=== PATIENT | female | born 1955 | race Asian ===

== ENCOUNTER 2018-12-07 18:53 | Inpatient (IN) | payer BC ==
[~2018-12-07] VITALS: Ht 165.1 cm; Wt 90.0 kg
[2018-12-08] VITALS: BP 130/85; PULSE 59; RESP 17; Ht 165.1 cm; Wt 90.0 kg
[2018-12-08] MEDS ORDERED: ACETAMINOPHEN 325 MG TAB PO PRN (01:30)
[2018-12-08] MEDS: SOD CHLORIDE 0.9% 1,000 ML IV SCH ×2 (01:30→15:22)
[2018-12-08] MEDS ORDERED: morphine 2 MG INJ IV PRN (01:30)
[2018-12-08] MEDS: PANTOPRAZOLE 40 MG INJ IV SCH (06:00)
[2018-12-08 07:49] VITALS: BP 128/73; PULSE 70; RESP 18
--- NOTE | 2018-12-08 12:36 | QN ---
Documentation Comment seen and examined LYN STEWART MD Dec 08, 2018 12:36
[2018-12-08] MEDS: ONDANSETRON 4 MG INJ IV PRN (15:27)
[2018-12-08 15:32] VITALS: BP 137/79; PULSE 59; RESP 18
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
[2018-12-08] MEDS: INDOMETHACIN 50 MG SUPP PR ONE ×2 (19:00→22:00)
[2018-12-08 20:04] VITALS: BP 128/72; PULSE 63; RESP 20
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
[2018-12-09] VITALS (17 sets, daily range): BP systolic 130–168; BP diastolic 68–101; PULSE 54–82; RESP 16–21
[2018-12-09] MEDS: SOD CHLORIDE 0.9% 1,000 ML IV SCH ×3 (01:50→15:24)
[2018-12-09] MEDS: PANTOPRAZOLE 40 MG INJ IV SCH (05:55)
[2018-12-09] MEDS ORDERED: SEVOFLURANE 15 MIN ONE (07:00)
[2018-12-09] MEDS: ONDANSETRON 4 MG INJ IV PRN (11:41)
[2018-12-09] MEDS ORDERED: INDOMETHACIN 50 MG SUPP PR ONE (12:00)
[2018-12-09] MEDS ORDERED: IOHEXOL 300MG/ML 30 ML BTL ONE (12:05)
--- NOTE | 2018-12-09 12:43 | HPN ---
Date/Time of Note Date/Time of Note DATE: 12/09/18 TIME: 12:42 Interval H&P Admission Note Pt. seen H&P reviewed: No system changes ALINA MONTGOMERY MD Dec 09, 2018 12:43
--- NOTE | 2018-12-09 12:50 | PREAC ---
Date/Time of Note Date/Time of Note DATE: 12/09/18 TIME: 12:48 Anesthesia Eval and Record Evaluation Time Pre-Procedure Interview DATE: 12/09/18 TIME: 12:48 Age 63 Sex female NPO: 8 hrs Preoperative diagnosis Biliary Stenosis Planned procedure ERCP Past Medical History Past Medical History: None Heme: Anemia Surgery & Anesthesia Issues No known issue Meds Anticoagulation: No Beta Saad within 24 hr: No Reason Beta Saad not given: Pt. not on B-Saad Current Medications Sodium Chloride 1,000 ml @ 100 mls/hr Q10H IV Last administered on 12/09/18at 11:41; Admin Dose 100 MLS/HR; Start 12/08/18 at 01:30 Morphine Sulfate (morphine) 2 mg Q4H PRN IV SEVERE PAIN LEVEL 7-10; Start 12/08/18 at 01:30 Acetaminophen (Tylenol Tab) 650 mg Q6H PRN PO MILD PAIN(1-3)OR ELEVATED TEMP; Start 12/08/18 at 01:30 Ondansetron HCl (Zofran Inj) 4 mg Q6H PRN IV NAUSEA AND/OR VOMITING Last administered on 12/09/18at 11:41; Admin Dose 4 MG; Start 12/08/18 at 01:30 Pantoprazole (Protonix Iv) 40 mg DAILY@06 IV Last administered on 12/09/18at 05:55; Admin Dose 40 MG; Start 12/08/18 at 06:00 Meds reviewed: Yes Allergies Coded Allergies: No Known Allergy (Unverified , 12/08/18) Allergies Reviewed: Yes Labs/Studies Labs Reviewed: Reviewed by anesthesiologist Result Diagram: 12/08/18 0447 12/09/187 Laboratory Tests 12/09/18 04:47 test: N/A Studies: ECG (n/a), CXR (n/a) Pre-procedure Exam Last vitals Vital Signs Date Temp Pulse Resp B/P (MAP) Pulse Ox O2 O2 Flow FiO2 Time Delivery Rate 12/09/18 97.6 54 20 136/76 97 Room Air 08:25 (96) Airway: Adequate mouth opening, Adequate thyromental dist Mallampati: Mallampati II Teeth: Normal Lung: Normal Heart: Normal ASA Physical Status ASA physical status: 2 Emergency: None Planned Anesthetic General/MAC: ETT Planned Pain Management Parenteral pain med Pre-operative Attestations Prior to commencing anesthesia and surgery, the patient was re-evaluated, there was verification of: *The patient's identity *The results of appropriate recent lab work and preoperative vital signs *The above evaluation not changing prior to induction *Anesthetic plan, risk benefits, alternative and complications discussed with patient/family; questions answered; patient/family understands, accepts and wishes to proceed. ALVARO HSIEH MD Dec 09, 2018 12:50
[2018-12-09] MEDS ORDERED: PROPOFOL 20 ML ONE (12:51)
[2018-12-09] MEDS ORDERED: MIDAZOLAM 1 MG/ML 2 ML INJ ONE (12:51)
[2018-12-09] MEDS ORDERED: CEFAZOLIN 1 GM INJ ONE (12:51)
[2018-12-09] MEDS ORDERED: ROCURONIUM 50 MG INJ ONE (12:51)
[2018-12-09] MEDS ORDERED: FENTAnyl 50 MCG/ML VIAL ONE (12:52)
[2018-12-09] MEDS ORDERED: DIPHENHYDRAMINE 50 MG INJ IV PRN (13:00)
[2018-12-09] MEDS ORDERED: FENTAnyl 50 MCG/ML VIAL IV PRN ×6 (13:00→13:30)
[2018-12-09] MEDS ORDERED: LABETALOL HCL 20MG INJ IV PRN ×2 (13:00→13:30)
[2018-12-09] MEDS ORDERED: hydrALAzine 20 MG INJ IV PRN ×2 (13:00→13:30)
[2018-12-09] MEDS ORDERED: HYDROmorphONE 1 MG/5 ML IV SYRINGE IV PRN ×6 (13:00→13:30)
[2018-12-09] MEDS ORDERED: ONDANSETRON 4 MG INJ IV PRN ×2 (13:00→13:30)
[2018-12-09] MEDS ORDERED: EPHEDrine SULFATE 50 MG/5 ML SYG IV PRN ×2 (13:00→13:30)
[2018-12-09] MEDS ORDERED: MEPERIDINE 25 MG INJ IV PRN (13:00)
[2018-12-09] MEDS ORDERED: METOCLOPRAMIDE 10 MG INJ IV PRN ×2 (13:00→13:30)
[2018-12-09] MEDS ORDERED: ONDANSETRON 4 MG INJ ONE (13:25)
[2018-12-09] MEDS ORDERED: GLYCOPYRROLATE 0.4 MG INJ ONE (13:25)
[2018-12-09] MEDS ORDERED: METOCLOPRAMIDE 10 MG INJ ONE (13:25)
[2018-12-09] MEDS ORDERED: KETOROLAC 30 MG INJ ONE (13:25)
[2018-12-09] MEDS ORDERED: DEXAMETHASONE 4 MG/ML 5 ML INJ ONE (13:25)
[2018-12-09] MEDS ORDERED: NEOSTIGMINE 3 MG/3 ML SYRINGE ONE (13:25)
--- NOTE | 2018-12-09 13:44 | PAC ---
Date/Time of Note Date/Time of Note DATE: 12/09/18 TIME: 13:44 Post-Anesthesia Notes Post-Anesthesia Note Last documented vital signs Vital Signs Date Temp Pulse Resp B/P (MAP) Pulse Ox O2 O2 Flow FiO2 Time Delivery Rate 12/09/18 98.4 54 20 136/76 97 Room Air 13:45 (96) Activity: WNL Respiratory function: WNL Cardiovascular function: WNL Mental status: Baseline Pain reasonably controlled: Yes Hydration appropriate: Yes Nausea/Vomiting absent: Yes ALVARO HSIEH MD Dec 09, 2018 13:44
--- NOTE | 2018-12-09 13:49 | PN ---
Date/Time of Note Date/Time of Note DATE: 12/09/18 TIME: 13:47 Assessment/Plan VTE Prophylaxis Risk score (from Ns)>0 risk: 3 SCD applied (from Ns): Yes Pharmacological prophylaxis: NA/contraindicated Pharm contraindication: low risk/ambulating Lines/Catheters IV Catheter Type (from Rust): Peripheral IV Urinary Cath still in place: No Assessment/Plan Hospital Course 63-year-old female who presented with: 1. Recurrent episodes of pancreatitis. The patient is status post cholecystectomy in 1994. CT of the abdomen and pelvis showed mild intrahepatic biliary dilatation in the posterior right hepatic lobe, could be benign biliary stricture. MRCP findings noted 2. Pancytopenia. 3. Abnormal LFTs secondary to #1. 4. History of cholecystectomy. 5. History of hysterectomy. PLAN -ERCP today -Lipase trending down -Repeat labs tomorrow -GI recs -Pain control/ZOFRAN/Reglan/PPI Result Diagram: 12/08/1844612/09/18446 Results 24hrs Laboratory Tests Test 12/09/18 04:47 Prothrombin Time 12.8 Prothrombin Time Ratio 1.0 INR International Normalized Ratio 0.95 Sodium Level 140 Potassium Level 4.3 Chloride Level 106 Carbon Dioxide Level 24 Anion Gap 10 Blood Urea Nitrogen 10 Creatinine 0.65 Est Glomerular Filtrat Rate mL/min > 60 Glucose Level 103 Calcium Level 8.9 Magnesium Level 2.0 Total Bilirubin 0.7 Direct Bilirubin 0.00 Indirect Bilirubin 0.7 Aspartate Amino Transf (AST/SGOT) 287 H Alanine Aminotransferase (ALT/SGPT) 277 H Alkaline Phosphatase 182 H Total Protein 7.0 Albumin 3.5 Globulin 3.50 H Albumin/Globulin Ratio 1.00 Lipase 1470 H CA 19-9 Antigen < 1.4 Subjective 24 Hr Interval Summary Free Text/Dictation Pain is improved today MRCP noted Exam/Review of Systems Exam Vitals Vital Signs Date Temp Pulse Resp B/P (MAP) Pulse Ox O2 O2 Flow FiO2 Time Delivery Rate 12/09/18 97.6 54 20 136/76 97 Room Air 08:25 (96) Intake and Output 12/08/18 12/08/18 12/09/18 1515:00 23:00 07:00 IntakeIntake Total 560 ml 395 ml 1100 ml BalanceBalance 560 ml 395 ml 1100 ml Exam GENERAL: The patient is awake, alert, oriented, does not appear to be in any acute distress. HEENT: Pupils are equal, round, reactive to light. No scleral icterus. LUNGS: Clear to auscultation bilaterally. HEART: Regular rate, rhythm. ABDOMEN: Soft, some tenderness present in the epigastric region. Positive bowel sounds. Multiple surgical scars. EXTREMITIES: No clubbing, cyanosis or edema. The patient has a surgical scar on the left foot. Results Results 24hrs Laboratory Tests Test 12/09/18 04:47 Prothrombin Time 12.8 Prothrombin Time Ratio 1.0 INR International Normalized Ratio 0.95 Sodium Level 140 Potassium Level 4.3 Chloride Level 106 Carbon Dioxide Level 24 Anion Gap 10 Blood Urea Nitrogen 10 Creatinine 0.65 Est Glomerular Filtrat Rate mL/min > 60 Glucose Level 103 Calcium Level 8.9 Magnesium Level 2.0 Total Bilirubin 0.7 Direct Bilirubin 0.00 Indirect Bilirubin 0.7 Aspartate Amino Transf (AST/SGOT) 287 H Alanine Aminotransferase (ALT/SGPT) 277 H Alkaline Phosphatase 182 H Total Protein 7.0 Albumin 3.5 Globulin 3.50 H Albumin/Globulin Ratio 1.00 Lipase 1470 H CA 19-9 Antigen < 1.4 Medications Medication Current Medications Sodium Chloride 1,000 ml @ 100 mls/hr Q10H IV Last administered on 12/09/18at 11:41; Admin Dose 100 MLS/HR; Start 12/08/18 at 01:30 Morphine Sulfate (morphine) 2 mg Q4H PRN IV SEVERE PAIN LEVEL 7-10; Start 12/08/18 at 01:30 Acetaminophen (Tylenol Tab) 650 mg Q6H PRN PO MILD PAIN(1-3)OR ELEVATED TEMP; Start 12/08/18 at 01:30 Ondansetron HCl (Zofran Inj) 4 mg Q6H PRN IV NAUSEA AND/OR VOMITING Last administered on 12/09/18at 11:41; Admin Dose 4 MG; Start 12/08/18 at 01:30 Pantoprazole (Protonix Iv) 40 mg DAILY@06 IV Last administered on 12/09/18at 05:55; Admin Dose 40 MG; Start 12/08/18 at 06:00 Hydromorphone HCl (Dilaudid) 0.2 mg PACU PRN IV MILD PAIN 1-3; Start 12/09/18 at 13:00; Stop 12/09/18 at 17:00 Hydromorphone HCl (Dilaudid) 0.4 mg PACU PRN IV MOD PAIN 4-6; Start 12/09/18 at 13:00; Stop 12/09/18 at 17:00 Hydromorphone HCl (Dilaudid) 0.6 mg PACU PRN IV SEVERE PAIN 7-10; Start 12/09/18 at 13:00; Stop 12/09/18 at 17:00 Fentanyl (Sublimaze) 25 mcg PACU ORDER PRN IV MILD PAIN 1-3; Start 12/09/18 at 13:00; Stop 12/09/18 at 17:00 Fentanyl (Sublimaze) 50 mcg PACU ORDER PRN IV MOD PAIN 4-6; Start 12/09/18 at 13:00; Stop 12/09/18 at 17:00 Fentanyl (Sublimaze) 75 mcg PACU ORDER PRN IV SEVERE PAIN 7-10; Start 12/09/18 at 13:00; Stop 12/09/18 at 17:00 Ondansetron HCl (Zofran Inj) 4 mg PACU ORDER PRN IV NAUSEA/VOMITING; Start 12/09/18 at 13:00; Stop 12/09/18 at 17:00 Metoclopramide HCl (Reglan) 10 mg PACU ORDER PRN IV NAUSEA/VOMITING; Start 12/09/18 at 13:00; Stop 12/09/18 at 17:00 Labetalol HCl (Labetalol) 5 mg PACU ORDER PRN IV HIGH BLOOD PRESSURE; Start at 13:00; Stop 12/09/18 at 17:00 Hydralazine HCl (Apresoline) 5 mg PACU ORDER PRN IV HIGH BLOOD PRESSURE; Start 12/09/18 at 13:00; Stop 12/09/18 at 17:00 Ephedrine Sulfate 5 mg PACU ORDER PRN IV BLOOD PRESSURE SUPPORT; Start 12/09/18 at 13:00; Stop 12/09/18 at 17:00 Meperidine HCl (Demerol) 25 mg PACU ORDER PRN IV .RIGORS; Start 12/09/18 at 13:00; Stop 12/09/18 at 17:00 Diphenhydramine HCl (Benadryl) 25 mg PACU ORDER PRN IV .PRURITUS; Start 12/09/18 at 13:00; Stop 12/09/18 at 17:00 Hydromorphone HCl (Dilaudid) 0.2 mg PACU PRN IV MILD PAIN 1-3; Start 12/09/18 at 13:30; Stop 12/09/18 at 20:00 Hydromorphone HCl (Dilaudid) 0.4 mg PACU PRN IV MOD PAIN 4-6; Start 12/09/18 at 13:30; Stop 12/09/18 at 20:00 Hydromorphone HCl (Dilaudid) 0.6 mg PACU PRN IV SEVERE PAIN 7-10; Start 12/09/18 at 13:30; Stop 12/09/18 at 20:00 Fentanyl (Sublimaze) 25 mcg PACU ORDER PRN IV MILD PAIN 1-3; Start 12/09/18 at 13:30; Stop 12/09/18 at 20:00 Fentanyl (Sublimaze) 50 mcg PACU ORDER PRN IV MOD PAIN 4-6; Start 12/09/18 at 13:30; Stop 12/09/18 at 20:00 Fentanyl (Sublimaze) 75 mcg PACU ORDER PRN IV SEVERE PAIN 7-10; Start 12/09/18 at 13:30; Stop 12/09/18 at 20:00 Ondansetron HCl (Zofran Inj) 4 mg PACU ORDER PRN IV NAUSEA/VOMITING; Start 12/09/18 at 13:30; Stop 12/09/18 at 20:00 Metoclopramide HCl (Reglan) 10 mg PACU ORDER PRN IV NAUSEA/VOMITING; Start 12/09/18 at 13:30; Stop 12/09/18 at 20:00 Labetalol HCl (Labetalol) 5 mg PACU ORDER PRN IV HIGH BLOOD PRESSURE; Start 12/09/18 at 13:30; Stop 12/09/18 at 20:00 Hydralazine HCl (Apresoline) 5 mg PACU ORDER PRN IV HIGH BLOOD PRESSURE; Start 12/09/18 at 13:30; Stop 12/09/18 at 20:00 Ephedrine Sulfate 5 mg PACU ORDER PRN IV BLOOD PRESSURE SUPPORT; Start 12/09/18 at 13:30; Stop 12/09/18 at 20:00 LYN STEWART MD Dec 09, 2018 13:49
--- NOTE | 2018-12-10 01:39 | GILP ---
DATE OF PROCEDURE: 12/07/2018 PROCEDURE PERFORMED: . INDICATION: The patient is a 63-year-old female who presented with biliary pancreatitis. She had MR CP done, which showed biliary stricture. The purpose of this procedure is to evaluate the biliary sy stem and perform therapeutic endoscopy. The risk of the procedure, related and unrelated complicatio ns, anesthetic risks, alternatives were discussed. Informed consent was obtained. DESCRIPTION OF PROCEDURE: The patient was brought to OR room #3 intubated, placed in a prone positio n, was given Indocin suppository and also given antibiotic. ERCP scope passed with much ease into es ophagus and advanced further down into stomach and duodenum. Ampulla was identified, selectively can nulated, bile duct was mildly dilated. No stricture was seen. There appeared to be small filling de fect in the distal part of the bile duct, blind sphincterotomy was done and with a 12 mm balloon, the bile duct was swept. Largest cholesterol stone was removed, probably 1.5 cm in diameter. Bile duct was swept multiple times and after that, a #10-Turkmen 5 cm in length successfully deployed with exce llent drainage established. Scope was removed with good patient tolerance. IMPRESSION: 1. Bile duct stone successfully removed after a large sphincterotomy. 2. A 12 mm balloon sweeping done 5 to 6 times. 3. Stent deployed, #10-Turkmen 5 cm, good drainage established. 4. Brushing was done. 5. Fluoroscopy time was 3 to 4 seconds. PLAN: Monitor LFT. The patient is planning to go to [place] and told them the stent needs to be remov ed within 3 to 4 months. We will review the cytology report. I did not see any stricture. Again, s ome small intrapapillary biliary stricture cannot be absolutely ruled out, but my personal feeling is the stricture, which on MRCP was most probably related to the stone. I had a lengthy discussion with the son and also the for the future care in [place]. If there is any doubt or continues to have abnormal LFT, then probably would need a SpyGlass. Dictated By: ALINA SARAVIA/NTS Conf#: [id number] DID#: [id number] CC: LYN STEWART;*EndCC*
[2018-12-10 02:17] VITALS: BP 138/75; PULSE 52; RESP 20
[2018-12-10] MEDS: SOD CHLORIDE 0.9% 1,000 ML IV SCH (02:57)
[2018-12-10] MEDS: PANTOPRAZOLE 40 MG INJ IV SCH (06:29)
[2018-12-10 08:12] VITALS: BP 150/67; PULSE 50; RESP 18
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
--- NOTE | 2018-12-10 14:18 | PDOCDIS ---
Discharge Instructions DIAGNOSIS Discharge Diagnosis choledocholithiasis pancreatitis CONDITION [id number] Patient Condition: [id number] Fair HOME CARE INSTRUCTIONS: [id number] Diet Instructions: Fpfeb0b vegetarian [id number] Special Diet: Unsrx6n low fat ACTIVITY: Netst4Np Activity Restrictions: Aoevj2g No Restrictions Slowly Increase Activity Rest between Activity Avoid heavy lifting FOLLOW UP/APPOINTMENTS Follow-up Plan f/u PCP in 1-2 weeks removal of stent in few weeks return to ER if has abdominal pain/fevers LYN STEWART MD Dec 10, 2018 14:18
[2018-12-10] MEDS ORDERED: GLYCERIN PR (14:19)
[2018-12-10 14:40] VITALS: BP 106/56; PULSE 59; RESP 18
[2018-12-10] MEDS ORDERED: GLYCERIN (ADULT) SUPP PR ONE (15:30)
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
== END 2018-12-10 20:20 | disposition home or self-care (01) | DRG 445 ==
LOC: EDSEX 22:53 → MS1 22:53 → UNDOADMIN 22:53 → MS1 23:14 → UNDODISIN 12-10 20:20
PROVIDERS: ADMIT Internal Medicine; ATTEND Internal Medicine
PROC: 0F798DZ Dilation of Common Bile Duct with Intraluminal Device, Via Natural or Artificial Opening Endoscopic (ICD-10-PCS; 2018-12-09)
PROC: BF10YZZ Fluoroscopy of Bile Ducts using Other Contrast (ICD-10-PCS; 2018-12-09)
PROC: 0FC98ZZ Extirpation of Matter from Common Bile Duct, Via Natural or Artificial Opening Endoscopic (ICD-10-PCS; principal; 2018-12-09 12:30)
DX: K80.50 Calculus of bile duct without cholangitis or cholecystitis without obstruction (principal); K86.1 Other chronic pancreatitis; K21.9 Gastro-esophageal reflux disease without esophagitis; K29.70 Gastritis, unspecified, without bleeding; Z90.710 Acquired absence of both cervix and uterus; Z90.49 Acquired absence of other specified parts of digestive tract
CPT/HCPCS: 74181; 74330; 80053; 83690; 83735; 84100; 85025; 85610; 86301; 88104; 88305; C2617; C9113; J0690; J1100; J1170; J1885; J2250; J2405; J2710; J2765; J3010; J7030; Q9967